=== PATIENT | female | born 1995 | race Caucasian/White ===

== ENCOUNTER 2018-08-20 18:25 | Emergency (ER) | payer SELFPAY | END 2018-08-20 18:45 | disposition left against medical advice (07) | LOC: MADERS 18:25 | DX: Z53.21 Procedure and treatment not carried out due to patient leaving prior to being seen by health care provider (principal) ==

== ENCOUNTER 2018-10-07 18:37 | Emergency (ER) | payer BC, SELFPAY ==
[2018-10-07] MEDS ORDERED: Lactated Ringer's 1,000 ML BAG ONE (18:45)
[2018-10-07] MEDS ORDERED: Sodium Chloride 0.9% 1,000 ML BAG ONE (18:45)
[2018-10-07] MEDS ORDERED: Ibuprofen 800 MG TAB ONE (19:00)
[2018-10-07] MEDS ORDERED: Acetaminophen 325 MG TAB ONE ×3 (19:23→20:33)
[2018-10-07] MEDS ORDERED: Acetaminophen 500 MG TAB ONE (20:29)
[2018-10-07] MEDS ORDERED: Sodium Chloride 0.9% 1,000 ML ONE (21:07)
[2018-10-07 21:47] LABS: Mean Corpuscular Hemoglobin 29.5 pg (27.0-31.0); Mean Corpuscular Volume 89.2 fL (78.0-98.0); Mean Platelet Volume 6.7 fL (7.4-10.4); Platelet Count 205 thou/uL (130-400); RBC Distribution Width 11.9 % (11.5-14.5); Red Blood Cell (RBC) Count 3.72 mill/uL (4.20-5.40)
[2018-10-07 21:57] LABS: Anisocytosis SLIGHT = 6-15 cells (100X) (0-5/hpf); Band 1 % (5-11); Lymphocytes 19 % (21-51); MDiff Complete? YES; Monocytes 16 % (0-10); Neutrophil 64 % (42-75); Platelet Morphology Comment Appears Adequate
[2018-10-07 21:59] LABS: ALT (SGPT) 20 U/L (8-55); AST (SGOT) 14 U/L (5-34); Albumin 3.5 g/dL (3.5-5.0); Alkaline Phosphatase 68 U/L (40-150); Anion Gap 13 mmol/L (10-20); BUN (Urea Nitrogen) 4 mg/dL (7.0-18.7); Bilirubin, Total 0.2 mg/dL (0.2-1.2); Calc. Creatinine Clearance 0 mL/min (70-130); Calcium 8.2 mg/dL (7.8-10.44); Carbon Dioxide 20 mmol/L (22-29); Chloride 111 mmol/L (98-107); Estimated GFR-MDRD 89; Globulin 2.1 g/dL (2.4-3.5); Glucose 104 mg/dL (70-105); Potassium 3.3 mmol/L (3.5-5.1); Protein, Total 5.6 g/dL (6.0-8.3); Sodium 141 mmol/L (136-145)
[2018-10-07] MEDS ORDERED: Potassium Chloride 20 MEQ TAB ONE (22:06)
== END 2018-10-07 22:31 | disposition home or self-care (01) ==
LOC: MADERS 18:37
DX: S16.1XXA Strain of muscle, fascia and tendon at neck level, initial encounter (principal); S29.012A Strain of muscle and tendon of back wall of thorax, initial encounter; G44.309 Post-traumatic headache, unspecified, not intractable; E86.0 Dehydration; E87.6 Hypokalemia; B34.9 Viral infection, unspecified; V49.9XXA Car occupant (driver) (passenger) injured in unspecified traffic accident, initial encounter
CPT/HCPCS: 80053; 83605; 85025; 87081; 87430; 99284; J7050; J7120